=== PATIENT | male | born 1945 | race Caucasian/White ===

== ENCOUNTER 2017-12-11 20:20 | Outpatient (CLI) | payer MEDICARE, OTHER ==
--- NOTE | 2017-12-12 16:51 | XRAY Report ---
Procedure Date: 12/11/2017 Accession Number: [id number] / [id number] Procedure: XR - Wrist 4 View RT CPT Code: FULL RESULT: EXAM: RIGHT WRIST RADIOGRAPHY. EXAM DATE: 12/11/2017 08:45 PM. CLINICAL HISTORY: Right thumb, middle index finger pain, radial nerve. COMPARISON: None. TECHNIQUE: 4 views. FINDINGS: Bones: No acute fractures. Joints: There is advanced osteoarthritic change at the entire radial scaphoid articulation with "[id number]" appearance. Widening of the scapholunate space indicative of scapholunate ligament tear also is identified. Small amount of arthritic change is seen at the lunate-capitate articulation. Large loose body is seen at the lateral aspect of the first CMC joint. On the lateral, numerous loose bodies also seen in the dorsal aspect of the intercarpal joint. Surrounding Soft Tissues: Surrounding volar and dorsal soft tissue swelling. 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 There is also a small amount of arthritic change at the lunate-capitate articulation. 2. Large loose body at the lateral aspect of the first CMC joint. 3. Numerous other loose bodies seen at the dorsal aspect of the intercarpal joints. RADIA
== END 2017-12-11 20:21 | disposition home or self-care (01) ==
LOC: DI 20:20
PROVIDERS: ATTEND Family Medicine
DX: M19.031 Primary osteoarthritis, right wrist (principal); M24.08 Loose body, other site

== ENCOUNTER 2021-11-30 07:27 | Emergency (ER) | payer MEDICARE, OTHER ==
[2021-11-30 07:34] VITALS: BP 159/101
[2021-11-30] MEDS ORDERED: TETANUS/DIPHTHERIA/PERTUSSIS 0.5 ML SYRINGE IM ONE (07:45)
--- NOTE | 2021-11-30 07:45 | ED Physician Documentation ---
PD HPI SKIN - Stated complaint Stated Complaint: LAC LT INDEX - Chief complaint Chief Complaint: Laceration - History obtained from History obtained from: Patient - History of Present Illness Timing - onset: How many days ago (2) - Additional information Additional information: 76-year-old male presents for evaluation of an index finger laceration. Patient states that he was fixing his car on the side of the road 2 days ago when he accidentally cut himself on the dorsum of his left index finger with a knife. He states that he did not seek medical treatment at that time. Patient presents today because the top of his index finger is red and seems to be a little swollen. Reports pain with any movement of his finger. Denies numbness, weakness, decreased range of motion of his index finger. Review of Systems Ten Systems: 10 systems reviewed and negative Constitutional: denies: Fever, Chills Cardiac: denies: Chest pain / pressure, Palpitations Respiratory: denies: Dyspnea, Cough Skin: reports: Rash, Laceration (s) PD PAST MEDICAL HISTORY - Past Medical History Past Medical History: No Cardiovascular: Hypertension Respiratory: None Neuro: None Endocrine/Autoimmune: None GI: None : None HEENT: Chronic hearing loss Psych: None Musculoskeletal: Osteoarthritis, Chronic back pain Derm: None - Past Surgical History Past Surgical History: Yes Ortho: Spine surgery - Present Medications Home Medications: Ambulatory Orders Medication Instructions Recorded Confirmed Diltiazem HCl [Diltiazem 12Hr ER] 120 mg PO DAILY 11/30/21 11/30/21 Meloxicam [Mobic] 15 mg PO BID PRN 11/30/21 11/30/21 cephALEXin [Keflex] 500 mg PO Q6H #28 cap 11/30/21 traMADol [Ultram] 50 mg PO Q6H PRN 11/30/21 11/30/21 - Allergies Allergies/Adverse Reactions: Allergies Allergy/AdvReac Type Severity Reaction Status Date / Time No Known Drug Allergies Allergy Verified 11/30/21 07:31 - Social History Does the pt smoke?: No Smoking Status: Never smoker Does the pt drink ETOH?: No Does the pt have substance abuse?: Yes Substance Use and Type: CBD oil / Products - Immunizations Immunizations are current?: Yes PD ED PE NORMAL - Vitals Vital signs reviewed: Yes - General General: Alert and oriented X 3, No acute distress, Well developed/nourished - HEENT HEENT: Atraumatic, PERRL, EOMI, Pharynx benign - Neck Neck: Supple, no meningeal sign, No bony TTP, No adenopathy, No JVD - Cardiac Cardiac: RRR, No murmur, No gallop - Respiratory Respiratory: No respiratory distress, Clear bilaterally - Abdomen Abdomen: Soft, Non tender, Non distended - Back Back: No CVA TTP, No spinal TTP - Derm Derm: Normal color, Warm and dry, No rash, Other (2cm rash dorsum L index finger) - Neuro Neuro: Alert and oriented X 3, diet attendant 2-12 intact, No motor deficit, No sensory deficit, Normal speech - Free text exam Free text exam: Index finger laceration. Outside window to successfully repair. Tetanus shot updated. Patient has full ROM of joint. Mild erythema on dorsum of L index finger, no signs or symptoms of flexor tenosynovitis at this time - no sausage digit, no pain with passive extension, not held flexed, no tenderness along flexor sheath. Soaked in hibiclens, thoroughly irrigated and cleaned. DC'd with close pcp followup advised. PD ED PE EXPANDED - Extremities WAQAR UE/Hands Visual: 1 - laceration (2cm laceration) Results - Vitals Vitals: Vital Signs - 24 hr 11/30/21 07:31 Temperature 36.4 C L Heart Rate 67 Respiratory 16 Rate Blood Pressure 159/101 H O2 Saturation 98 Oxygen O2 Source Room air Departure - Departure Disposition: 01 Home, Self Care Clinical Impression: Laceration, Wound of skin Condition: Good Instructions: Cellulitis Dc, ED Laceration All Prescriptions: cephALEXin [Keflex] 500 mg PO Q6H #28 cap Comments: Keep your wound clean and dry. Take all of your antibiotics as prescribed. Do not skip any doses or stop your course of antibiotics before they are completed. If you do not notice improvement in 24 to 48 hours please return immediately f or repeat evaluation. If you notice worsening redness, drainage from your wound, or worsening swelling of your finger please return immediately for evaluation. Follow up this week with your primary care doctor Discharge Date/Time: 11/30/21 08:44
== END 2021-11-30 08:44 | disposition home or self-care (01) ==
LOC: ED 07:27
DX: S61.211A Laceration without foreign body of left index finger without damage to nail, initial encounter (principal); W26.0XXA Contact with knife, initial encounter; I10 Essential (primary) hypertension
CPT/HCPCS: 90471; 99282; 99283